=== PATIENT | female | born 1970 | race Caucasian/White ===

== ENCOUNTER → 2023-12-12 12:27 | Outpatient (REF) | payer OTHER, SELFPAY | LOC: WDC 12:27 | PROVIDERS: ATTENDING PHYSICIAN Family Medicine | DX: Z12.31 Encounter for screening mammogram for malignant neoplasm of breast (principal) | CPT/HCPCS: 77063; 77067 ==

== ENCOUNTER → 2024-02-24 06:26 | Day surgery (SDC) | payer OTHER, SELFPAY | LOC: GI 06:26 | PROVIDERS: ATTENDING PHYSICIAN Internal Medicine Gastroenterology | DX: K21.00 Gastro-esophageal reflux disease with esophagitis, without bleeding (principal); R13.10 Dysphagia, unspecified | CPT/HCPCS: 43239; 88305; 88342 ==

== ENCOUNTER → 2024-07-18 15:02 | Outpatient (REF) | payer OTHER, SELFPAY | LOC: RAD 15:02 | PROVIDERS: ATTENDING PHYSICIAN Family Medicine | DX: M25.551 Pain in right hip (principal); M25.571 Pain in right ankle and joints of right foot | CPT/HCPCS: 73502; 73610 ==

== ENCOUNTER → 2024-12-12 12:03 | Outpatient (REF) | payer OTHER, SELFPAY | LOC: WDC 12:03 | PROVIDERS: ATTENDING PHYSICIAN Obstetrics & Gynecology | DX: Z12.31 Encounter for screening mammogram for malignant neoplasm of breast (principal) | CPT/HCPCS: 77063; 77067 ==

== ENCOUNTER → 2024-12-18 15:38 | Outpatient (REF) | payer OTHER, SELFPAY | LOC: RAD 15:38 | PROVIDERS: ATTENDING PHYSICIAN Nurse Practitioner Family; PRIMARYCARE PHYSICIAN Family Medicine | DX: N95.0 Postmenopausal bleeding (principal) | CPT/HCPCS: 76830; 76856 ==

== ENCOUNTER → 2025-02-12 08:42 | Outpatient (REF) | payer OTHER, SELFPAY | LOC: HWRAD 08:42 | PROVIDERS: ATTENDING PHYSICIAN Internal Medicine Gastroenterology; FAMILY PHYSICIAN Family Medicine | DX: K76.0 Fatty (change of) liver, not elsewhere classified (principal); R19.4 Change in bowel habit | CPT/HCPCS: 76700; 82653; 82705; 89055 ==

== ENCOUNTER 2025-02-19 06:21 | Day surgery (SDC) | payer OTHER, SELFPAY ==
[2025-02-19] VITALS (9 sets, daily range): BP systolic 82–131; BP diastolic 51–74; BMI 28.6
[2025-02-19] MEDS: NORMOSOL-R/PLASMALYTE-A 1000 IV (09:40)
== END 2025-02-19 13:16 | disposition home or self-care (01) ==
LOC: SDS 06:21
PROVIDERS: ATTENDING PHYSICIAN Obstetrics & Gynecology
DX: N85.8 Other specified noninflammatory disorders of uterus (principal); N95.0 Postmenopausal bleeding
CPT/HCPCS: 58558; 88305